=== PATIENT | female | born 1985 | race Caucasian/White ===

== ENCOUNTER 2022-03-02 22:35 | Emergency (ER) | payer SELFPAY ==
[~2022-03-02] VITALS: Ht 157.5 cm; Wt 45.4 kg
== END 2022-03-03 01:21 | disposition home or self-care (01) ==
LOC: ER 03-03 00:18
DX: R05.9 Cough, unspecified (principal); U07.1 COVID-19; R51.9 Headache, unspecified; F17.210 Nicotine dependence, cigarettes, uncomplicated
CPT/HCPCS: 99283; U0002

== ENCOUNTER 2023-01-05 12:55 | Emergency (ER) | payer BC ==
[~2023-01-05] VITALS: Ht 157.5 cm; Wt 50.8 kg
[2023-01-05 13:20] VITALS: O2SAT 98
[2023-01-05] MEDS ORDERED: ONDANSETRON HCL INJ 2MG/ML 2ML 2 MG/ML VIAL IV STA (13:54)
[2023-01-05] MEDS ORDERED: FAMOTIDINE 20 MG/2 ML VIAL IV STA (13:54)
[2023-01-05] MEDS ORDERED: SODIUM CHLORIDE 0.9% 1000ML 1,000 ML IV ONE (14:00)
[2023-01-05] MEDS ORDERED: ONDANSETRON HCL INJ 2MG/ML 2ML 2 MG/ML VIAL ONE (14:44)
[2023-01-05] MEDS ORDERED: SODIUM CHLORIDE 0.9% 1000ML 1,000 ML ONE (14:44)
[2023-01-05] MEDS ORDERED: FAMOTIDINE 20 MG/2 ML VIAL IV ONE (14:44)
[2023-01-05] MEDS ORDERED: KETOROLAC TROMETHAMINE 30 MG/ML VIAL IM STA (14:51)
[2023-01-05] MEDS ORDERED: DEXAMETHASONE SOD PHOS 10 MG/1 ML VIAL IM ONE (15:00)
[2023-01-05] MEDS ORDERED: KETOROLAC TROMETHAMINE 30 MG/ML VIAL IV STA (15:26)
[2023-01-05] MEDS ORDERED: KETOROLAC TROMETHAMINE 30 MG/ML VIAL ONE (15:35)
[2023-01-05] MEDS ORDERED: FIORICET 50-301 EACH PO (16:02)
== END 2023-01-05 16:48 | disposition home or self-care (01) ==
LOC: FSED 13:18
DX: G43.909 Migraine, unspecified, not intractable, without status migrainosus (principal); Z73.3 Stress, not elsewhere classified
CPT/HCPCS: 70450; 80053; 81003; 85025; 99283; J1885; J2405; J7030; J1100